=== PATIENT | male | born 1945 | race Caucasian/White ===

== ENCOUNTER 2016-10-10 07:01 | Day surgery (SDC) | payer OTHER ==
[2016-10-06 17:06] LABS: HEMATOCRIT 49.7 % (40.0-51.0); HEMOGLOBIN 16.3 g/dL (13.6-17.8)
[2016-10-06 17:08] LABS: BUN (BLOOD UREA NITROGEN) 10 MG/DL (6-23); CALCIUM, SERUM 9.8 MG/DL (8.5-10.4); CHLORIDE, SERUM 107 MMOL/L (96-112); CO2 (CARBON DIOXIDE) 31 MMOL/L (24-34); CREATININE 1.13 MG/DL (0.70-1.30); GFR AFRICAN AMERICAN 75 ML/MIN (>=60); GFR NON AFRICAN AMERICAN 65 ML/MIN (>=60); GLUCOSE, SERUM 144 MG/DL (60-99); POTASSIUM, SERUM 4.9 MMOL/L (3.5-5.3); SODIUM, SERUM 142 MMOL/L (135-148)
[~2016-10-10 07:01] MED LIST: ASAB PO; CYANO1000T PO; GLUCPH PO; HCTZ25B PO; NORV10 PO; VITAMIN D2000 UNIT PO
[2016-11-18] MEDS ORDERED: VITAMIN D31000 UNIT PO (08:22)
[2016-11-18] MEDS ORDERED: CO Q-10100 MG PO (08:23)
[2016-11-18] MEDS ORDERED: RED YEAS1 PO (08:23)
== END 2016-10-10 23:59 | disposition home or self-care (01) ==
LOC: SDC 07:01
DX: R31.0 Gross hematuria (principal); Z53.8 Procedure and treatment not carried out for other reasons
CPT/HCPCS: 80048; 82962; 85014; 85018; 93005